=== PATIENT | female | born 1940 | race Caucasian/White ===

== ENCOUNTER 2018-03-10 12:26 | Emergency (ER) | payer MEDICARE, OTHER, SELFPAY ==
[2018-03-10 12:27] VITALS: BP 154/72; PULSE 63; RESP 20; TEMP 36.1; O2SAT 94
--- NOTE | 2018-03-10 12:40 | DI.RAD.S_ITS ---
PROCEDURE: XR CHEST 1V INDICATIONS: chest pain TECHNIQUE: One view of the chest was acquired. COMPARISON: [facility], , CHEST 1 VIEW, 08/04/2016, 13:24. FINDINGS: Surgical changes and devices: None. Lungs and pleura: Poor inspiratory effort is noted. Increased pulmonary vascularity is present. Mediastinum: Mediastinal contours appear normal. Heart size is normal. Bones and chest wall: No suspicious bony lesions. Overlying soft tissues appear unremarkable. IMPRESSION: Increased vascularity suggestive of edema. Dictated by: Jane Saldaña M.D. on 03/10/2018 at 14:36 Approved by: Jane Saldaña M.D. on 03/10/2018 at 14:38
[2018-03-10 12:59] LABS: Add Manual Diff / Slide Review NO; Basophils Percent Auto 1.4 % (0-2); Eosinophils Percent Auto 4.9 % (2-4); Lymphocytes Percent Auto 31.4 % (25-40); Mean Corpuscular HGB Conc 34.1 % (30-36); Mean Corpuscular Hemoglobin 30.9 PG (26-34); Mean Corpuscular Volume 90.6 fL (80-100); Monocytes Percent Auto 8.1 % (3-14); Neutrophils Absolute Auto 3000 /uL (3000-5900); Neutrophils Percent Auto 54.2 % (50-75); Platelet Count 418 X10^3/uL (150-400); Red Blood Cell Count 4.53 X10^6/uL (4.0-5.2); Red Cell Distribution Width 15.4 % (11.6-14.8); White Blood Cell Count 5.6 X10^3/uL (4.5-11.0)
[2018-03-10 13:06] LABS: Prothrombin Time 10.8 SECONDS (10.1-12.7)
[2018-03-10 13:09] LABS: PTT Partial Thromboplastin Tim 33 SECONDS (26.4-36.2)
[2018-03-10 13:13] LABS: Alanine Aminotransferase 21 IU/L (9-52); Albumin 4.5 g/dL (3.5-5.0); Albumin Globulin Ratio 1.4 (1.0-2.8); Alkaline Phosphatase 101 U/L (38-126); Aspartate Aminotransferase 34 IU/L (14-36); BUN Creatinine Ratio 33.3 (6-22); Bilirubin Total 0.5 mg/dL (0.2-1.3); Blood Urea Nitrogen 20 mg/dL (7-17); Carbon Dioxide 27 mmol/L (22-32); Chloride 102 mmol/L (98-107); Creatine Kinase 49 U/L (30-135); Estimated Glomerular Filt Rate > 60.0 mL/min (>60); Globulin 3.2 g/dL (1.7-4.1); Glucose 136 mg/dL (80-110); HEMOLYSIS 25 (0-50); Lipase 38 U/L (23-300); Potassium 4.4 mmol/L (3.4-5.1); Sodium 139 mmol/L (137-145); Total Protein 7.7 g/dL (6.3-8.2)
[2018-03-10 13:23] LABS: Troponin I < 0.012 ng/mL (0.01-0.034)
[2018-03-10 13:30] VITALS: BP 169/80; PULSE 74; RESP 16; O2SAT 98
[2018-03-10 13:39] LABS: Bacteria Urine None Seen
--- NOTE | 2018-03-10 13:42 | DI.CT.S_ITS ---
PROCEDURE: CT ABDOMEN PELVIS W CON INDICATIONS: LLQ Pain TECHNIQUE: After the administration of intravenous contrast, 5 mm thick sections acquired from the diaphragm to the symphysis. 5 mm coronal and sagittal reformats were acquired. For radiation dose reduction, the following was used: automated exposure control, adjustment of mA and/or kV according to patient size. COMPARISON: [facility], CT, ABD/PELVIS W/CON (PNL), 01/28/2015, 15:15. [facility] Ultrasound, US, ABDOMEN SONOGRAM, 11/26/2013, 10:44. FINDINGS: Image quality: Excellent. ABDOMEN: Lung bases: 3 mm right middle lobe nodule is present on series 3 image 7, new compared to prior exam. In addition punctate nodule is noted in the right lower lobe on series 3 image 10, also new. Solid organs: Liver demonstrates a 13 mm focus of enhancement along the posterior superior liver. Is not identified on prior exams. Gallbladder is unremarkable. Biliary system is non dilated. Pancreas enhances normally. Spleen is normal in size and enhancement. Unchanged thickening of the left adrenal gland. In Kidneys demonstrate normal size and enhancement, without hydronephrosis. Peritoneum and bowel: Bowel loops are nonobstructed. There is significant stool within the sigmoid colon with large quantity of stool within the rectum. No free fluid or air. Nodes and vessels: No retroperitoneal or mesenteric adenopathy by size criteria. Aorta and inferior vena cava are normal in size. Miscellaneous: Small fat-containing hernia PELVIS: Genitourinary: Bladder wall thickness is normal. Miscellaneous: No inguinal hernias or adenopathy. Bones: No suspicious bony lesions. No vertebral body compression fractures. Prominent scoliotic changes are present within the lumbar spine. IMPRESSION: 1. Stool within the left colon as well as large quantity of stool in the rectal vault, consistent with constipation There is no obstruction. 2. Subcentimeter nodules within the lungs as above, new compared to prior exam. Recommend interval followup as below. 3. 13 mm enhancing focus within the liver, not previously visualized. This could represent a hemangioma. However, other etiologies cannot be excluded. Further evaluation with ultrasound may be obtained as clinically indicated nonemergent basis. Fleischner Society criteria for lung nodule followup. Nodule size (mm)Low-risk patientHigh-risk patient<6 (single or multiple)No routine followup/Optional CT at 12 months.6-8 (single or multiple)CT at 6-12 months; then noptional CT at 18-24 monthsCT at 6-12 months, then 18-24 months i>8 (single)CT at 3 months, then optional CT at 18-24 months if no change.Initial follow-up CT at 3-6 months, then 18-24 months >8 (multiple)CT at 3-[address] at 18-24 months.CT at 3-6 months, then CT at 18-24 months.Non-solid (ground-glass) or partly solid nodules may require longer follow-up to exclude indolent adenocarcinoma. Dictated by: Jane Saldaña M.D. on 03/10/2018 at 16:42 Approved by: Jane Saldaña M.D. on 03/10/2018 at 16:49
[2018-03-10 13:44] LABS: Appearance Urine UA CLOUDY; Bilirubin Urine UA NEGATIVE (NEGATIVE); Color Urine UA YELLOW; Glucose Urine UA NEGATIVE (Normal); Ketones Urine UA NEGATIVE (NEGATIVE); Leukocyte Esterase Urine UA 3+ (NEGATIVE); Nitrite Urine UA POSITIVE (Negative); Occult Blood Urine UA TRACE-LYSED (Negative); Protein Urine UA TRACE (Negative); Urobilinogen Urine UA 0.2 E.U./dL (0.2)
[2018-03-10 13:56] LABS: Culture Indicated Urine Specimen Cultured; RBC Urine 1-5/HPF (0-5/HPF); Renal Epithelial Cells Urine 5-10/HPF; Squamous Epithelial Cell Urine 0-1 /HPF; WBC Urine 30-100/HPF (0-5/HPF)
[2018-03-10 14:00] VITALS: BP 162/78; PULSE 83; RESP 12; O2SAT 96
[2018-03-10] MEDS: CEFTRIAXONE 1 GM/50 ML FROZ.PIGGY IV (15:13)
[2018-03-10 15:30] VITALS: BP 111/85; PULSE 86; RESP 14
[2018-03-10 16:30] VITALS: BP 107/81; PULSE 92; RESP 15
--- NOTE | 2018-03-10 17:16 | ED_ITS ---
HPI - Abdominal Pain General Chief Complaint: Abdominal Pain Stated Complaint: Abd. Pain /SOB / Chest Pain History of Present Illness HPI narrative: HPI 78-year-old female with dementia presents for evaluation of poorly characterized left lower quadrant abdominal pain possibly one day duration is without clear provoking or relieving factors. No further history presently available secondary to the patient's baseline dementia. M/S/F/SocHx notable for: osteoarthritis, DM, UTI, failure to thrive, Gerd, hypothyroidism, recurrent major depressive disorder, Sjogren's syndrome, peripheral neuropathy; remainder reviewed with patient and in chart. ROS: unable to obtain secondary to dementia. Exam Gen: Pleasant, non-toxic appearing, resting comfortably. HEENT: NC, AT, PEERL, EOMI. Resp: Clear to auscultation bilaterally, normal work of breathing, no accessory muscle usage. Card: Regular rate and rhythm with no murmurs, rubs, or gallops, extremities warm and well perfused. GI: mild left lower quadrant tenderness palpation, remainder of abdomen nontender to palpation, no rebound, no guarding. : No suprapubic tenderness to palpation. No CVA tenderness bilaterally. MSK: No visible deformities, strength and tone without visually appreciable deficit. Skin: Normal color with no visible lesions. Neuro: alert, oriented to self, no facial asymmetry, vision and hearing WNL. Psych: Mood and affect appropriate. Labs / Imaging: WBC 5.6, HB 14.0, PT/INR 1.0, NA 139, K 4.4, glucose 136, total bilirubin 0.5, AST 34, ALT 21, troponin <0.012 UA - positive nitrate, 3+ leukocyte esterase, no bacteria seen, 30-100 WBCs CXR: increase vascularity suggestive of edema. EKG: SR 62 bpm, no ST segment elevations or depressions, no LBBB. CT Abd/Pelvis: 1. Stool within the left colon as well as large quantity of stool in the rectal vault, consistent with constipation There is no obstruction. 2. Subcentimeter nodules within the lungs as above, new compared to prior exam. Recommend interval followup as below. 3. 13 mm enhancing focus within the liver, not previously visualized. This could represent a hemangioma. However, other etiologies cannot be excluded. Further evaluation with ultrasound may be obtained as clinically indicated nonemergent basis. MDM Previous chart, nursing note, labs, imaging, and vitals reviewed. A: 78-year-old female with dementia presents for evaluation of poorly characterized left lower quadrant abdominal pain possibly one day duration is without clear provoking or relieving factors. Evaluation: patient with a unclear overall symptom constellation concerning for possible subtle changes in mentation as well as left sided abdominal discomfort. Imaging notable for constipation. Labs notable for UTI. Chest x-ray without evidence of acute disease, mild pulmonary edema was noted, however the patient is a normal work of breathing and clear breath sounds, troponin negative. Patient discharged with prescription for cephalexin, and given bowel cleanout instructions. 1 g ceftriaxone given in the ED.. Return to care precautions provided Impression: constipation, UTI (please reference below for remainder of encounter information) Related Data Home Medications Medication Instructions Recorded Confirmed OMEPRAZOLE 20 mg PO BID #0 03/03/10 clopidogrel [Plavix] 75 mg PO QDAY #0 08/04/16 desvenlafaxine succinate [Pristiq] 100 mg PO QDAY #0 08/04/16 Previous Rx's Medication Instructions Recorded albuterol sulfate [Ventolin HFA] 1 puff INH Q4HP PRN #1 ea 06/03/16 docusate sodium 100 mg PO Q DAY #90 tab-cap 06/03/16 potassium chloride 20 meq OR BID #120 tab 06/05/16 levothyroxine [Synthroid] 50 mcg PO QAM #30 tab 07/29/16 ciprofloxacin HCl [Cipro] 500 mg PO BID #14 tab 08/07/16 gabapentin [Neurontin] 300 mg PO HS #30 cap 08/07/16 hydrocodone-acetaminophen 0 tab PO Q4HP PRN #30 tab 08/07/16 nicotine 21 mg TOPICAL QDAY #14 patch 08/07/16 Allergies Allergy/AdvReac Type Severity Reaction Status Date / Time Sulfa (Sulfonamide Allergy Unknown Verified 03/10/18 15:12 Antibiotics) [SULFA (SULFONAMIDE ANTIBIOTICS)] meperidine [MEPERIDINE] AdvReac Unknown Verified 03/10/18 15:12 [facility] Social History Smoking Status: Never smoker Exam Initial Vital Signs Initial Vital Signs: Vital Signs Temperature 97.0 F L 03/10/18 12:27 Pulse Rate 63 03/10/18 12:27 Respiratory Rate 20 03/10/18 12:27 Blood Pressure 154/72 H 03/10/18 12:27 Pulse Oximetry 94 03/10/18 12:27 Course Orders Ordered: ED Orders 03/10/18 12:40 XR chest 1V Stat EKG-12 Lead Stat 03/10/18 12:45 Complete Blood Count AUTO DIFF Stat Comprehensive Metabolic Panel Stat Lipase Stat Partial Thromboplastin Time Stat Prothrombin Time INR Stat Troponin & CK Cardiac Panel Stat 03/10/18 13:23 Urinalysis and Microscopic Stat Urine Culture Stat 03/10/18 13:42 CT abdomen pelvis w con Stat Discontinued Medications Ceftriaxone Sodium/Dextrose (Rocephin) 1 gm in 50 mls @ 100 mls/hr IV NOW ONE Stop: 03/10/18 15:24 Last Infusion: 03/10/18 15:41 Dose: 0 mls/hr Admin: 03/10/18 15:13 Dose: 100 mls/hr Vital Signs - 8 hr 03/10/18 12:27 03/10/18 13:30 03/10/18 14:00 Temperature 97.0 F L Pulse Rate 63 74 83 Respiratory Rate 20 16 12 Blood Pressure 154/72 H Blood Pressure [Right Arm] 169/80 H 162/78 H Pulse Oximetry 94 98 96 03/10/18 15:30 03/10/18 16:30 Temperature Pulse Rate 86 92 H Respiratory Rate 14 15 Blood Pressure Blood Pressure [Right Arm] 111/85 H 107/81 H Pulse Oximetry MDM - Abdominal Pain Lab Data Result diagrams: 03/10/18 12:45 03/10/18 12:45 Lab Results 03/10/18 03/10/18 03/10/18 Range/Units 12:45 12:45 12:45 WBC 5.6 (4.5-11.0) X10^3/uL RBC 4.53 (4.0-5.2) X10^6/uL Hgb 14.0 (12.0-16.0) g/dL Hct 41.0 (36-46) % MCV 90.6 (80-100) fL MCH 30.9 (26-34) PG MCHC 34.1 (30-36) % RDW 15.4 H (11.6-14.8) % Plt Count 418 H (150-400) X10^3/uL Neut % (Auto) 54.2 (50-75) % Lymph % (Auto) 31.4 (25-40) % [place] % (Auto) 8.1 (3-14) % Eos % (Auto) 4.9 H (2-4) % Baso % (Auto) 1.4 (0-2) % Neut # (Auto) 3000 (7617-5073) /uL PT 10.8 (10.1-12.7) SECONDS INR 1.0 (0.9-1.3) APTT 33 (26.4-36.2) SECONDS Sodium 139 (137-145) mmol/L Potassium 4.4 (3.4-5.1) mmol/L Chloride 102 (98-107) mmol/L Carbon Dioxide 27 (22-32) mmol/L BUN 20 H (7-17) mg/dL Creatinine 0.60 (0.52-1.04) mg/dL Estimated GFR > 60.0 (>60) mL/min BUN/Creatinine Ratio 33.3 H (6-22) Glucose 136 H (80-110) mg/dL Calcium 10.0 (8.4-10.2) mg/dL Total Bilirubin 0.5 (0.2-1.3) mg/dL AST 34 (14-36) IU/L ALT 21 (9-52) IU/L Alkaline Phosphatase 101 (38-126) U/L Total Creatine Kinase 49 (30-135) U/L Troponin I < 0.012 (0.01-0.034) ng/mL Total Protein 7.7 (6.3-8.2) g/dL Albumin 4.5 (3.5-5.0) g/dL Globulin 3.2 (1.7-4.1) g/dL Albumin/Globulin Ratio 1.4 (1.0-2.8) Lipase 38 (23-300) U/L Urine Color Urine Appearance Urine pH (4.5-8.0) Ur Specific [place] (1.000-1.035) Urine Protein (Negative) Urine Glucose (UA) (Normal) g/dL Urine Ketones (NEGATIVE) Urine Occult Blood (Negative) Urine Nitrate (Negative) Urine Bilirubin (NEGATIVE) Urine Urobilinogen (0.2) E.U./dL Ur Leukocyte Esterase (NEGATIVE) Urine RBC (0-5/HPF) Urine WBC (0-5/HPF) Ur Squamous Epith Cells Ur Renal Epithelial Cell Urine Bacteria (None) Ur Culture Indicated? Micro UA Comment 03/10/18 Range/Units 13:23 WBC (4.5-11.0) X10^3/uL RBC (4.0-5.2) X10^6/uL Hgb (12.0-16.0) g/dL Hct (36-46) % MCV (80-100) fL MCH (26-34) PG MCHC (30-36) % RDW (11.6-14.8) % Plt Count (150-400) X10^3/uL Neut % (Auto) (50-75) % Lymph % (Auto) (25-40) % [place] % (Auto) (3-14) % Eos % (Auto) (2-4) % Baso % (Auto) (0-2) % Neut # (Auto) (8086-8969) /uL PT (10.1-12.7) SECONDS INR (0.9-1.3) APTT (26.4-36.2) SECONDS Sodium (137-145) mmol/L Potassium (3.4-5.1) mmol/L Chloride (98-107) mmol/L Carbon Dioxide (22-32) mmol/L BUN (7-17) mg/dL Creatinine (0.52-1.04) mg/dL Estimated GFR (>60) mL/min BUN/Creatinine Ratio (6-22) Glucose (80-110) mg/dL Calcium (8.4-10.2) mg/dL Total Bilirubin (0.2-1.3) mg/dL AST (14-36) IU/L ALT (9-52) IU/L Alkaline Phosphatase (38-126) U/L Total Creatine Kinase (30-135) U/L Troponin I (0.01-0.034) ng/mL Total Protein (6.3-8.2) g/dL Albumin (3.5-5.0) g/dL Globulin (1.7-4.1) g/dL Albumin/Globulin Ratio (1.0-2.8) Lipase (23-300) U/L Urine Color Yellow Urine Appearance Cloudy Urine pH 6.0 (4.5-8.0) Ur Specific [place] 1.020 (1.000-1.035) Urine Protein Trace H (Negative) Urine Glucose (UA) Negative (Normal) g/dL Urine Ketones Negative (NEGATIVE) Urine Occult Blood Trace-lysed (Negative) Urine Nitrate Positive H (Negative) Urine Bilirubin Negative (NEGATIVE) Urine Urobilinogen 0.2 (0.2) E.U./dL Ur Leukocyte Esterase 3+ H (NEGATIVE) Urine RBC 1-5/hpf (0-5/HPF) Urine WBC 30-100/hpf H (0-5/HPF) Ur Squamous Epith Cells 0-1 /hpf Ur Renal Epithelial Cell 5-10/hpf H Urine Bacteria None seen (None) Ur Culture Indicated? Specimen cultured Micro UA Comment Not Reportable Discharge Plan Departure Prescriptions: No Action OMEPRAZOLE 20 mg PO BID Qty: 0 RF: 0 albuterol sulfate [Ventolin HFA] 90 MCG/PUFF HFA aerosol inhaler 1 puff INH Q4HP PRNQty: 1 RF: 5 docusate sodium 100 MG tablet 100 mg PO Q DAY Qty: 90 RF: 3 potassium chloride 10 MEQ tablet extended release 20 meq OR BID Qty: 120 RF: 11 levothyroxine [Synthroid] 50 MCG tablet 50 mcg PO QAM Qty: 30 RF: 0 clopidogrel [Plavix] 75 MG tablet 75 mg PO QDAY Qty: 0 RF: 0 desvenlafaxine succinate [Pristiq] 100 MG tablet extended release 24 hr 100 mg PO QDAY Qty: 0 RF: 0 gabapentin [Neurontin] 300 MG capsule 300 mg PO HS Qty: 30 RF: 0 nicotine 21 MG patch 24 hour 21 mg Topical QDAY Qty: 14 RF: 0 hydrocodone-acetaminophen 5 MG/325 MG tablet PO Q4HP PRNQty: 30 RF: 0 ciprofloxacin HCl [Cipro] 500 MG tablet 500 mg PO BID Qty: 14 RF: 0
== END 2018-03-10 18:35 | disposition home or self-care (01) ==
PROVIDERS: Emergency Provider Emergency Medicine; Family Provider Nurse Practitioner Family; PCP Internal Medicine
DX: K59.00 Constipation, unspecified (principal); N39.0 Urinary tract infection, site not specified
CPT/HCPCS: 36591; 71045; 74177; 80053; 81001; 82550; 82553; 83690; 84484; 85025; 85610; 85730; 87077; 87086; 87186; 93005; 93041; 96365; 99285; Q9967

== ENCOUNTER → 2018-05-15 22:21 | Outpatient (REF) | payer MEDICARE, SELFPAY ==
[2018-05-15 22:47] LABS: Add Manual Diff / Slide Review NO; Basophils Percent Auto 1.4 % (0-2); Eosinophils Percent Auto 0.4 % (2-4); Hematocrit 42.4 % (36-46); Hemoglobin 14.3 g/dL (12.0-16.0); Lymphocytes Percent Auto 27.1 % (25-40); Mean Corpuscular HGB Conc 33.8 % (30-36); Mean Corpuscular Hemoglobin 31.2 PG (26-34); Mean Corpuscular Volume 92.2 fL (80-100); Monocytes Percent Auto 8.6 % (3-14); Neutrophils Absolute Auto 7400 /uL (3000-5900); Neutrophils Percent Auto 62.5 % (50-75); Platelet Count 461 X10^3/uL (150-400); Red Blood Cell Count 4.59 X10^6/uL (4.0-5.2); Red Cell Distribution Width 16.5 % (11.6-14.8); White Blood Cell Count 11.8 X10^3/uL (4.5-11.0)
[2018-05-15 23:00] LABS: BUN Creatinine Ratio 42.5 (6-22); Blood Urea Nitrogen 34 mg/dL (7-17); Calcium 10.6 mg/dL (8.4-10.2); Carbon Dioxide 19 mmol/L (22-32); Chloride 113 mmol/L (98-107); Estimated Glomerular Filt Rate > 60.0 mL/min (>60); Glucose 193 mg/dL (80-110); HEMOLYSIS 45 (0-50); Potassium 4.5 mmol/L (3.4-5.1); Sodium 149 mmol/L (137-145)
== END ==
LOC: LAB 22:21
PROVIDERS: Visit Provider Internal Medicine
DX: R53.83 Other fatigue (principal)
CPT/HCPCS: 80048; 85025